=== PATIENT | male | born 1980 | race Caucasian/White ===

== ENCOUNTER 2017-06-04 13:19 | Emergency (ER) | payer BC, OTHER ==
[~2017-06-04] VITALS: Ht 182.9 cm; Wt 90.7 kg
--- NOTE | 2017-06-04 14:26 | ED EENT ---
History of Present Illness General Chief Complaint: Dental Problems/Pain Stated Complaint: TEETH/MOUTH PAIN Nursing Triage Note: C/O DENTAL PAIN FOR 2 WEEKS. Source: patient Exam Limitations: no limitations History of Present Illness Time seen by provider: 14:05 Initial Comments Here with report of dental pain that is worsening over the last 2 weeks. His dental insurance starting in a few days. He is concerning is to be on antibiotics. He has several dental caries with the worst part today is the right upper jaw midline to the lateral 3-4 teeth. Denies nausea or vomiting. States ibuprofen is no longer helping. He has been gargling with salt water. Location: mouth, dental Prearrival Treatment: over the counter meds Associated Symptoms: No facial pain/swelling, No fever, No sinus infection, No sore throat, tooth pain Allergies and Home Medications Allergies Coded Allergies: No Known Drug Allergies (Unverified , 06/04/17) Home Medications No Active Prescriptions or Reported Meds Review of Systems Constitutional: see HPI, No chills, No fever Eyes: No Symptoms Reported Ears: No Symptoms Reported Nose: no symptoms reported Mouth: see HPI, pain Throat: no symptoms reported Respiratory: no symptoms reported Cardiovascular: no symptoms reported Past Pmomoda-Vkrteq-Vgehfz Hx Patient Social History Alcohol Use: Denies Use Recreational Drug Use: No Smoking Status: Never a Smoker Recent Foreign Travel: No Contact w/Someone Who Travel: No Recent Infectious Disease Expo: No Surgeries History of Surgeries: No Cardiovascular History of Cardiac Disorders: No Neurological History of Neurological Disord: No Genitourinary History of Genitourinary Disor: No Gastrointestinal History of Gastrointestinal Di: No Musculoskeletal History of Musculoskeletal Dis: No Endocrine History of Endocrine Disorders: No HEENT History of HEENT Disorders: No Cancer History of Cancer: No Psychosocial History of Psychiatric Problem: No Integumentary History of Skin or Integumenta: No Reviewed Nursing Assessment Reviewed/Agree w Nursing PMH: Yes Physical Exam Vital Signs Vital Sign - Last 12Hours 06/04/17 13:43 Temp 98.6 Pulse 94 Resp 18 B/P (MAP) 120/107 (111) General Appearance: WD/WN, no apparent distress Eyes: bilateral eye normal inspection, bilateral eye PERRL, bilateral eye EOMI Nose: normal inspection, No active bleeding Mouth/Throat: pharynx normal, other (multiple dental caries and moderate gum and periodontal Disease noted. Most prominent and most tender area in the right upper maxillary region midline to lateral involving the incisors, canine and premolar area.) Neck: full range of motion, supple Cardiovascular: regular rate, rhythm, no murmur Respiratory: lungs clear, normal breath sounds Neurologic/Psychiatric: alert, oriented x 3 Skin: normal color, warm/dry Progress/Results/Core Measures Results/Orders Vital Signs/I&O Vital Sign - Last 12Hours 06/04/17 13:43 Temp 98.6 Pulse 94 Resp 18 B/P (MAP) 120/107 (111) Blood Pressure Mean: 111 Progress Note : Progress Note Seen and evaluated. I did discuss the importance of following up with a dentist especially given his advanced periodontal disease. We will initiate antibiotic treatment and write a small prescription for pain medicine. Over-the -counter pain medicine discussed including ibuprofen and Tylenol and the appropriate use. Discharged home with return precautions. Patient verbalize understanding instructions and agreement with plan. Departure Impression Impression: Primary Impression: Dental caries Additional Impression: Gingivitis Disposition: HOME, SELF-CARE Condition: Stable Departure-Patient Inst. Decision time for Depature: 14:25 Referrals: NO,LOCAL PHYSICIAN (PCP/Family) Primary Care Physician Patient Instructions: Tooth Abscess (DC), Gingivitis (DC), Tooth Decay, Adult ( DC) Add. Discharge Instructions: All discharge instructions reviewed with patient and/or family. Voiced understanding. You should swish and spit salt water 3 times daily at a minimum. Continue to brush her teeth. His vital important that he follow-up with the dentist for further evaluation and care. Take medications as directed. You may take ibuprofen 800 mg every 8 hours as needed for pain. He may take Tylenol ( acetaminophen) 1000 mg every 8 hours as needed for pain but do not take this while taking the prescribed pain medicine as both have acetaminophen in them. Return for worse pain, fever, vomiting, weakness, breathing problems or other concerns as needed. Scripts Hydrocodone/Acetaminophen (Hydrocodon-Acetaminoph 7.5-325) 1 Each Tablet 1 EACH PO Q6H, #8 TAB 0 Refills Prov: SHENA ONEAL MD 06/04/17 Amoxicillin (Amoxicillin) 500 Mg Capsule 500 MG PO TID, #30 CAP 0 Refills Prov: SHENA ONEAL MD 06/04/17 SHENA ONEAL MD Jun 04, 2017 14:26
[2017-06-04] MEDS ORDERED: HYDR-3816 PO (14:27)
[2017-06-04] MEDS ORDERED: AMOX500C2 PO (14:27)
[2017-06-04 14:31] VITALS: BP 120/107
== END 2017-06-04 14:31 | disposition home or self-care (01) ==
LOC: ER 13:22
DX: K02.9 Dental caries, unspecified (principal); K05.10 Chronic gingivitis, plaque induced
CPT/HCPCS: 99282